=== PATIENT | female | born 1975 | race American Indian/Alaskan Native ===

== ENCOUNTER 2018-11-18 02:32 | Emergency (ER) | payer OTHER ==
[2018-11-18 02:42] VITALS: BP 132/86
[2018-11-18 03:14] LABS: Basophils % (Auto) 0.6 % (0.0-1.8); Eosinophils # (Auto) 0.1 K/mm3 (0.0-0.4); Eosinophils % (Auto) 1.3 % (0.0-4.3); Hematocrit 39.1 % (30.3-42.9); Hemoglobin 13.4 gm/dl (10.1-14.3); Lymphocytes # (Auto) 1.9 K/mm3 (1.2-5.4); Lymphocytes % (Auto) 23.3 % (13.4-35.0); Mean Corpuscular HGB Conc 34 % (30-34); Mean Corpuscular Volume 89 fl (79-97); Monocytes # (Auto) 0.6 K/mm3 (0.0-0.8); Monocytes % (Auto) 7.5 % (0.0-7.3); Platelet Count 186 K/mm3 (140-440); Red Cell Distribution Width 12.3 % (13.2-15.2)
[2018-11-18 03:30] LABS: Bilirubin,Urine NEG (Negative); Blood,Urine NEG (Negative); Color,Urine Straw (Yellow); Protein,Urine <15 mg/dL mg/dL (Negative); Urobilinogen,Urine < 2.0 mg/dL (<2.0); WBC,Urine < 1.0 /HPF (0.0-6.0)
[2018-11-18 03:37] LABS: Alanine Aminotransferase 22 units/L (7-56); Albumin 3.8 g/dL (3.9-5); BUN/Creatinine Ratio 20; Blood Urea Nitrogen 10 mg/dL (7-17); Calcium 8.7 mg/dL (8.4-10.2); Hemolysis Index 7
--- NOTE | 2018-11-18 06:29 | Emergency Department Report ---
<SAMEER PEARSON - Last Filed: 11/18/18 05:46> ED Abdominal Pain HPI - General Chief Complaint: Abdominal Pain Stated Complaint: BILATERAL SIDE PAIN Time Seen by Provider: 11/18/18 04:17 Source: patient, family Mode of arrival: Ambulatory Limitations: No Limitations, Language Barrier - History of Present Illness Initial Comments: 43-year-old female presents to the emergency room for abdominal pain for the last 2 days. Patient reports that the pain is right upper quadrant and left upper quadrant. Patient denies any nausea or vomiting. Patient reports she is able to eat and drink. Patient reports that the pain is intermittent 8 out of 10 and sharp. She reports that the pain is worse with deep breath and wa lking. She reports taking Tylenol that helped a little. She has no past medical history she is 3 para 3 not on control. MD Complaint: abdominal pain -: days(s) (2) Location: RUQ, LLQ Radiation: none Migration to: no migration Severity scale (0 -10): 8 Quality: stabbing, sharp Consistency: intermittent Improves With: nothing Worsens With: movement Associated Symptoms: denies other symptoms - Related Data LMP Date: 11/02/18 Previous Rx's Medication Instructions Recorded Last Taken Type Naproxen [Naprosyn] 500 mg PO TID PRN #15 tablet 11/18/18 Unknown Rx Allergies Allergy/AdvReac Type Severity Reaction Status Date / Time No Known Allergies Allergy Unverified 11/18/18 02:40 ED Review of Systems Comment: All other systems reviewed and negative Constitutional: no symptoms reported Gastrointestinal: abdominal pain ED Past Medical Hx - Past Medical History Previous Medical History?: No - Surgical History Past Surgical History?: No - Social History Smoking Status: Never Smoker Substance Use Type: None - Medications Home Medications: Home Medications Medication Instructions Recorded Confirmed Last Taken Type Naproxen [Naprosyn] 500 mg PO TID PRN #15 tablet 11/18/18 Unknown Rx ED Physical Exam - General Limitations: No Limitations, Language Barrier General appearance: alert, in no apparent distress - Head Head exam: Present: atraumatic, normocephalic - Eye Eye exam: Present: normal appearance, EOMI - ENT ENT exam: Present: mucous membranes moist - Respiratory Respiratory exam: Present: normal lung sounds bilaterally. Absent: respiratory distress - Cardiovascular Cardiovascular Exam: Present: regular rate, normal rhythm. Absent: systolic murmur, diastolic murmur, rubs, gallop - GI/Abdominal GI/Abdominal exam: Present: soft, tenderness. Absent: distended - Extremities Exam Extremities exam: Present: normal inspection, full ROM - Back Exam Back exam: Present: normal inspection - Neurological Exam Neurological exam: Present: alert, oriented X3 - Psychiatric Psychiatric exam: Present: normal affect, normal mood - Skin Skin exam: Present: warm, dry, intact, normal color. Absent: rash ED Medical Decision Making - Lab Data Result diagrams: 11/18/18 02:41 11/18/18 02:41 - Medical Decision Making Patient has been evaluated by this provider in [facility]. Labs are to be stable. CT with contrast has been ordered this patient has upper quadrant tenderness and pain. ED Disposition Clinical Impression: Umbilical hernia Qualifiers: Obstruction and gangrene presence: with obstruction but without gangrene Qualified Code(s): K42.0 - Umbilical hernia with obstruction, without gangrene Abdominal pain Qualifiers: Abdominal location: right upper quadrant Qualified Code(s): R10.11 - Right upper quadrant pain Disposition: - TO HOME OR SELFCARE Condition: Stable Instructions: Abdominal Pain (ED), Umbilical Hernia (ED) Additional Instructions: Follow-up with the general surgeon for care of umbilical hernia. Take ibuprofen, Tylenol, or naproxen for pain. Follow-up at [facility] or [facility] for continued care. Return to the emergency room if increased abdominal pain, nausea or vomiting, dizziness, diarrhea, or chest pain. Prescriptions: Naproxen [Naprosyn] 500 mg PO TID PRN #15 tablet PRN Reason: Pain , Severe (7-10) Referrals: OANH AQUINO MD [Primary Care Provider] - 3-5 Days [facility] [Outside] - 3-5 Days [facility] [Outside] - 3-5 Days TEJ SHAIKH MD [Staff Physician] - 3-5 Days Forms: Work/School Release Form(ED) <JOSIAH BLANCO - Last Filed: 11/18/18 08:05> ED Review of Systems ROS: Stated complaint: BILATERAL SIDE PAIN Other details as noted in HPI ED Course Vital Signs 11/18/18 02:41 Temperature 98.1 F Pulse Rate 68 Respiratory 16 Rate Blood Pressure 132/86 [Left] O2 Sat by Pulse 98 Oximetry ED Medical Decision Making - Lab Data Result diagrams: 11/18/18 02:41 11/18/18 02:41 Lab Results 11/18/18 11/18/18 11/18/18 Range/Units 02:41 02:41 02:41 WBC 8.1 (4.5-11.0) K/mm3 RBC 4.40 (3.65-5.03) M/mm3 Hgb 13.4 (10.1-14.3) gm/dl Hct 39.1 (30.3-42.9) % MCV 89 (79-97) fl MCH 30 (28-32) pg MCHC 34 (30-34) % RDW 12.3 L (13.2-15.2) % Plt Count 186 (140-440) K/mm3 Lymph % (Auto) 23.3 (13.4-35.0) % [place] % (Auto) 7.5 H (0.0-7.3) % Eos % (Auto) 1.3 (0.0-4.3) % Baso % (Auto) 0.6 (0.0-1.8) % Lymph # 1.9 (1.2-5.4) K/mm3 [place] # 0.6 (0.0-0.8) K/mm3 Eos # 0.1 (0.0-0.4) K/mm3 Baso # 0.0 (0.0-0.1) K/mm3 Seg Neutrophils % 67.3 (40.0-70.0) % Seg Neutrophils # 5.4 (1.8-7.7) K/mm3 Sodium 137 (137-145) mmol/L Potassium 3.6 (3.6-5.0) mmol/L Chloride 101.3 (98-107) mmol/L Carbon Dioxide 23 (22-30) mmol/L Anion Gap 16 mmol/L BUN 10 (7-17) mg/dL Creatinine 0.5 L (0.7-1.2) mg/dL Estimated GFR > 60 ml/min BUN/Creatinine Ratio 20 % Glucose 125 H (65-100) mg/dL Calcium 8.7 (8.4-10.2) mg/dL Total Bilirubin 0.30 (0.1-1.2) mg/dL AST 21 (5-40) units/L ALT 22 (7-56) units/L Alkaline Phosphatase 112 (35-129) units/L Total Protein 6.4 (6.3-8.2) g/dL Albumin 3.8 L (3.9-5) g/dL Albumin/Globulin Ratio 1.5 % Lipase (13-60) units/L HCG, Qual Negative (Negative) Urine Color (Yellow) Urine Turbidity (Clear) Urine pH (5.0-7.0) Ur Specific [place] (1.003-1.030) Urine Protein (Negative) mg/dL Urine Glucose (UA) (Negative) mg/dL Urine Ketones (Negative) mg/dL Urine Blood (Negative) Urine Nitrite (Negative) Urine Bilirubin (Negative) Urine Urobilinogen (<2.0) mg/dL Ur Leukocyte Esterase (Negative) Urine WBC (Auto) (0.0-6.0) /HPF Urine RBC (Auto) (0.0-6.0) /HPF U Epithel Cells (Auto) (0-13.0) /HPF 11/18/18 11/18/18 Range/Units 02:41 03:06 WBC (4.5-11.0) K/mm3 RBC (3.65-5.03) M/mm3 Hgb (10.1-14.3) gm/dl Hct (30.3-42.9) % MCV (79-97) fl MCH (28-32) pg MCHC (30-34) % RDW (13.2-15.2) % Plt Count (140-440) K/mm3 Lymph % (Auto) (13.4-35.0) % [place] % (Auto) (0.0-7.3) % Eos % (Auto) (0.0-4.3) % Baso % (Auto) (0.0-1.8) % Lymph # (1.2-5.4) K/mm3 [place] # (0.0-0.8) K/mm3 Eos # (0.0-0.4) K/mm3 Baso # (0.0-0.1) K/mm3 Seg Neutrophils % (40.0-70.0) % Seg Neutrophils # (1.8-7.7) K/mm3 Sodium (137-145) mmol/L Potassium (3.6-5.0) mmol/L Chloride (98-107) mmol/L Carbon Dioxide (22-30) mmol/L Anion Gap mmol/L BUN (7-17) mg/dL Creatinine (0.7-1.2) mg/dL Estimated GFR ml/min BUN/Creatinine Ratio % Glucose (65-100) mg/dL Calcium (8.4-10.2) mg/dL Total Bilirubin (0.1-1.2) mg/dL AST (5-40) units/L ALT (7-56) units/L Alkaline Phosphatase (35-129) units/L Total Protein (6.3-8.2) g/dL Albumin (3.9-5) g/dL Albumin/Globulin Ratio % Lipase 22 (13-60) units/L HCG, Qual (Negative) Urine Color Straw (Yellow) Urine Turbidity Clear (Clear) Urine pH 7.0 (5.0-7.0) Ur Specific [place] 1.006 (1.003-1.030) Urine Protein <15 mg/dl (Negative) mg/dL Urine Glucose (UA) Neg (Negative) mg/dL Urine Ketones Neg (Negative) mg/dL Urine Blood Neg (Negative) Urine Nitrite Neg (Negative) Urine Bilirubin Neg (Negative) Urine Urobilinogen < 2.0 (<2.0) mg/dL Ur Leukocyte Esterase Neg (Negative) Urine WBC (Auto) < 1.0 (0.0-6.0) /HPF Urine RBC (Auto) 2.0 (0.0-6.0) /HPF U Epithel Cells (Auto) 1.0 (0-13.0) /HPF - Radiology Data Radiology results: report reviewed PROCEDURE: CT ABDOMEN PELVIS W CON TECHNIQUE: Routine axial imaging was obtained of the abdomen and pelvis following the intravenous injection of iodinated contrast. Sagittal and coronal reconstructions were reviewed. HISTORY: abd pain and tenderness COMPARISONS: None FINDINGS: The lung bases are clear. Pleural fluid is not seen. The liver is normal in size and reveals diminished attenuation compatible hepatic steatosis. The gallbladder and biliary tree appear normal. The pancreas, spleen, and adrenal glands appear normal. The kidneys enhance normally. There is no evidence of hydronephrosis. The abdominal aorta is normal in caliber. The portal vein enhances normally. The bowel loops are normal in caliber and course. The appendix appears normal. There is no evidence of free fluid or adenopathy. There is a very small umbilical hernia containing omental fat. In the pelvis the uterus and bladder appear normal. The skeletal structures do not show any acute changes. IMPRESSION: No acute process in the abdomen and pelvis. Hepatic steatosis. No evidence of appendicitis. Very small umbilical hernia containing omental fat.. - Medical Decision Making Patient was seen from Chrissie Fong, pending CT with contrast of abdomen. CT dictated by radiologist and report reviewed by myself. No acute process in the abdomen and pelvis. Hepatic steatosis. No evidence of appendicitis. Very small umbilical hernia containing omental fat. Referral to primary care provider for continued care. Referral to general surgeon the care of umbilical hernia. Patient discharged home stable. Critical care attestation.: If time is entered above; I have spent that time in minutes in the direct care of this critically ill patient, excluding procedure time. ED Disposition Is pt being admited?: No Does the pt Need Aspirin: No Time of Disposition: 08:04
--- NOTE | 2018-11-18 07:05 | Cat Scan Report ---
PROCEDURE: CT ABDOMEN PELVIS W CON TECHNIQUE: Routine axial imaging was obtained of the abdomen and pelvis following the intravenous in jection of iodinated contrast. Sagittal and coronal reconstructions were reviewed. HISTORY: abd pain and tenderness COMPARISONS: None FINDINGS: The lung bases are clear. Pleural fluid is not seen. The liver is normal in size and reveals diminished attenuation compatible hepatic steatosis. The gall bladder and biliary tree appear normal. The pancreas, spleen, and adrenal glands appear normal. The k idneys enhance normally. There is no evidence of hydronephrosis. The abdominal aorta is normal in radha iber. The portal vein enhances normally. The bowel loops are normal in caliber and course. The append ix appears normal. There is no evidence of free fluid or adenopathy. There is a very small umbilical hernia containing omental fat. In the pelvis the uterus and bladder appear normal. The skeletal struc tures do not show any acute changes. IMPRESSION: No acute process in the abdomen and pelvis. Hepatic steatosis. No evidence of appendicitis. Very small umbilical hernia containing omental fat.. This document is electronically signed by Esteban Snell MD., November 18 2018 07:02:41 AM ET
== END 2018-11-18 08:24 | disposition home or self-care (01) ==
LOC: ED 02:32
DX: K42.9 Umbilical hernia without obstruction or gangrene (principal)
CPT/HCPCS: 36415; 74177; 80053; 81001; 83690; 84703; 85025; 99284; Q9967